=== PATIENT | female | born 1990 | race Caucasian/White ===

== ENCOUNTER → 2017-01-17 | Outpatient (CLI) | payer OTHER ==
--- NOTE | 2017-01-17 14:35 | KCIC ---
EXAM: Lumbar spine, 5 views. HISTORY: Pain. COMPARISON: None. FINDINGS: Frontal, lateral, bilateral oblique and coned sacral views of the lumbar spine are obtained. There is lumbar hyperlordosis. There is grade 1 anterolisthesis of L5 on S1, measuring 4 mm. The vertebral bodies are normal in height and the disc spaces are preserved. There is levoscoliosis centered at the thoracal lumbar junction. There are cholecystectomy clips. There are pelvic phleboliths. IMPRESSION: 1. Lumbar hyperlordosis and thoracolumbar levoscoliosis. 2. Grade 1 anterolisthesis of L5 on S1. Electronically signed by: Shital Burton MD (01/17/2017 2:31 PM) [id number]
== END | disposition home or self-care (01) ==
LOC: KCIC 13:42
PROVIDERS: ATTEND Family Medicine
DX: M40.46 Postural lordosis, lumbar region (principal)
CPT/HCPCS: 72110